=== PATIENT | female | born 1970 | race Caucasian/White ===

== ENCOUNTER → 2018-02-13 | Outpatient (CLI) | payer BC | LOC: M RAD 12:44 | DX: E05.00 Thyrotoxicosis with diffuse goiter without thyrotoxic crisis or storm (principal) | CPT/HCPCS: A9517 ==

== ENCOUNTER → 2018-04-10 | Outpatient (REF) | payer BC | LOC: M LABDRAW1 15:59 | DX: E05.00 Thyrotoxicosis with diffuse goiter without thyrotoxic crisis or storm (principal) | CPT/HCPCS: 84443 ==

== ENCOUNTER → 2019-07-06 | Outpatient (REF) | payer BC | LOC: M LAB LCGH 12:04 | PROVIDERS: ATTEND Physician Assistant | DX: B35.1 Tinea unguium (principal); Z51.81 Encounter for therapeutic drug level monitoring ==